=== PATIENT | male | born 1940 | race Hispanic/Latino ===

== ENCOUNTER 2020-04-06 17:45 | Emergency (ER) | payer MEDICARE ==
[~2020-04-06] VITALS: Ht 198.1 cm; Wt 81.6 kg
--- NOTE | 2020-04-06 18:38 | Emergency Department Note ---
History of Present Illnes History of Present Illness Chief Complaint: General Medicine Complaints History of Present Illness This is a 79 year old male PRESENTS WITH C/O SWELLING AND TENDERNESS TO RIGHT JAW BELOW RIGHT EAR SINCE SUNDAY PT DENIES DENTAL PAIN. Historian: Patient, Family Member Arrival Mode: Car Onset (how long ago): day(s) (3) Location: RIGHT JAW Quality: SWELLING AND PAIN Radiation: Reports non-radiation Severity: moderate Onset quality: gradual Duration (how long): day(s) (3) Timing of current episode: constant Progression: worsening Context: Denies recent illness, Denies recent surgery Relieving factors: none Exacerbating factors: movement Associated symptoms: Reports denies other symptoms Past Medical/Family History Physician Review I have reviewed the patient's past medical and family history. Any updates have been documented here. Past Medical History Recent Fever: No Clinical Suspicion of Infectio: Yes New/Unexplained Change in Ment: No Past Medical History: None Past Surgical History: None Social History Smoking Cessation: Unknown if ever smoked Counseling Performed: No Alcohol Use: None Any Illegal Drug Use: No Physically hurt or threatened: No Family History Family history of heart diseas: No Other Any Pre-Existing Lines (PICC,: No Review of Systems Review of Systems Constitutional: Reports no symptoms EENTM: Reports as per HPI Cardiovascular: Reports no symptoms Respiratory: Reports no symptoms Gastrointestinal: Reports no symptoms Genitourinary: Reports no symptoms Musculoskeletal: Reports no symptoms Integumentary: Reports no symptoms Neurological: Reports no symptoms Psychological: Reports no symptoms Endocrine: Reports no symptoms Hematological/Lymphatic: Reports as per HPI Physical Exam Related Data Allergies: Coded Allergies: No Known Allergies (Unverified , 04/06/20) Triage Vital Signs Vital Signs Date Time Temp Pulse Resp B/P (MAP) Pulse Ox O2 Delivery O2 Flow Rate FiO2 04/06/20 18:00 99.6 88 16 114/78 98 Room Air Vital signs reviewed: Yes Physical Exam CONSTITUTIONAL Constitutional: Present well-developed, Present well-nourished; Absent distressed HENT HENT: Present normocephalic, Present atraumatic, Present oropharynx clear/moist, Present nose normal, Present dental caries (DIFFUSE, RIGHT LOWER REAR MOLAR BLACK WITH SURROUNDING SWELLING), Present other (TENDER SWOLLEN AREA RIGHT JAW TMJ AREA BELOW RIGHT EAR, 3X4 CM IN SIZE) HENT L/R: Present left ext ear normal, Present right ext ear normal EYES Eyes: Reports PERRL, Reports conjunctivae normal NECK Neck: Present ROM normal PULMONARY Pulmonary: Present effort normal, Present breath sounds normal CARDIOVASCULAR Cardiovascular: Present regular rhythm, Present heart sounds normal, Present capillary refill normal, Present normal rate GASTROINTESTINAL Abdominal: Present soft, Present nontender, Present bowel sounds normal GENITOURINARY Genitourinary: Present exam deferred SKIN Skin: Present warm, Present dry MUSCULOSKELETAL Musculoskeletal: Present ROM normal NEUROLOGICAL Neurological: Present alert, Present oriented x 3, Present no gross motor or sensory deficits PSYCHOLOGICAL Psychological: Present mood/affect normal, Present judgement normal Results Laboratory Laboratory Laboratory Tests Test 04/06/20 18:00 White Blood Count 9.15 x10e3/uL (4.8-10.8) Red Blood Count 3.86 x10e6/uL (4.3-5.7) Hemoglobin 12.3 g/dL (14.0-18.0) Hematocrit 36.7 % (38.2-49.6) Mean Corpuscular Volume 95.1 fL (81-99) Mean Corpuscular Hemoglobin 31.9 pg (28-32) Mean Corpuscular Hemoglobin Concent 33.5 g/dL (31-35) Red Cell Distribution Width 12.6 % (11.7-14.4) Platelet Count 210 x10e3/uL (140-360) Neutrophils (%) (Auto) 72.5 % (38.7-80.0) Lymphocytes (%) (Auto) 16.0 % (18.0-39.1) Monocytes (%) (Auto) 8.9 % (4.4-11.3) Eosinophils (%) (Auto) 1.9 % (0.0-6.0) Basophils (%) (Auto) 0.4 % (0.0-1.0) Neutrophils # (Auto) 6.6 (2.1-6.9) Lymphocytes # (Auto) 1.5 (1.0-3.2) Monocytes # (Auto) 0.8 (0.2-0.8) Eosinophils # (Auto) 0.2 (0.0-0.4) Basophils # (Auto) 0.0 (0.0-0.1) Absolute Immature Granulocyte (auto 0.03 x10e3/uL (0-0.1) Sodium Level 137 mmol/L (136-145) Potassium Level 3.8 mmol/L (3.5-5.1) Chloride Level 103 mmol/L (98-107) Carbon Dioxide Level 23 mmol/L (22-29) Anion Gap 14.8 mmol/L (8-16) Blood Urea Nitrogen 14 mg/dL (7-26) Creatinine 0.78 mg/dL (0.72-1.25) Estimat Glomerular Filtration Rate > 60 ML/MIN (60-) BUN/Creatinine Ratio 18 (6-25) Glucose Level 177 mg/dL (74-118) Calcium Level 9.2 mg/dL (8.4-10.2) Total Bilirubin 0.8 mg/dL (0.2-1.2) Aspartate Amino Transf (AST/SGOT) 22 IU/L (5-34) Alanine Aminotransferase (ALT/SGPT) 14 IU/L (0-55) Alkaline Phosphatase 107 IU/L (40-150) Total Protein 7.2 g/dL (6.5-8.1) Albumin 3.6 g/dL (3.5-5.0) Globulin 3.6 g/dL (2.3-3.5) Albumin/Globulin Ratio 1.0 (0.8-2.0) Amylase Level 61 U/L (25-125) Lab results reviewed: Yes Imaging Imaging results reviewed: Yes Impressions History:Right facial swelling. Comparison studies: None Technique: Axial images were obtained through the facial region. Coronal and sagittal images reconstructed from the axial data. Dose modulation, iterative reconstruction, and/or weight based adjustment of the mA/kV was utilized to reduce the radiation dose to as low as reasonably achievable. Intravenous contrast: 100 cc of Isovue 370. Findings: Soft tissues: Heterogeneously enhancing and markedly enlarged right parotid gland, predominantly involving the superficial lobe. Focal hypodensity with peripheral rim enhancement that approximately measures 1.2 x 1 x 1.1 cm near the right parotid tail with associated dystrophic calcification in its anterior aspect. This may either represent a necrotic mass or lymph node. Anterior displacement of right submandibular gland due to mass effect. No significant overlying skin thickening or subcutaneous soft tissue inflammatory changes. Bones: Chronic fracture deformity of left zygomatic arch. 6 mm of well-circumscribed sclerotic lesion in left mandibular body possibly represents a bone island. Orbits: Globes: Intact. Extra or intraconal abnormalities: None. Paranasal sinuses: Mild mucosal thickening in left maxillary sinus and left ethmoid sinus. Incidental finding: Cervical spine: C2-C3: Moderate left foraminal stenosis due to facet and uncovertebral arthrosis. C3-C4: 2 mm grade 1 retrolisthesis. Posterior disc osteophyte complex results in mild canal stenosis. Moderate right and mild left foraminal stenosis due to uncovertebral arthrosis. Multiple missing teeth with osseous resorption around the remaining teeth. Dental caries in right maxillary molar, right maxillary first premolar. Periapical lucency centered about right mandibular central incisor, the activity of which is to be determined clinically. Mild degenerative changes in bilateral temporomandibular joint. IMPRESSION: Markedly enlarged, heterogeneously enhancing right parotid gland with a focal 1.2 cm peripheral rim-enhancing hypodensity and associated dystrophic calcifications. The differential consideration includes parotid neoplasm with a necrotic focus or intraparotid necrotic lymph node vs indolent infection/inflammatory process in appropriate clinical setting. Signed by: Dr. Veronica Yates M.D. on 04/06/2020 9:32 PM Dictated By: VERONICA YATES MD 31 Transcribed By: GWYN on 04/06/202131 COPY TO: DANA MEJIA MD~ Assessment & Plan Medical Decision Making MDM PT WITH SWELLING AND PAIN TO RIGHT JAW BELOW RIGHT EAR CBC, BMP, CT FACE WITH CONTRAST TO EVAL FOR LEUKOCYTOSIS, ABSCESS, DENTAL ABSCESS, MASS, I SPOKE WITH DR GARCIA (ENT) HE STATES TO HAVE PT CALL OFFICE IN AM TO BE SEEN IN CLINIC. PT DISCHARGED WITH PRESCRIPTION FOR AUGMENTIN 875 ONE PO BID FOR 14 DAYS #28, ZOFRN ODT 4 MG 1 SL Q 6 HOURS PRN NAUSEA #30 Assessment & Plan Final Impression: (1) Parotitis (2) Dental caries Depart Disposition: HOME, SELF-CARE Last Vital Signs Date Time Temp Pulse Resp B/P (MAP) Pulse Ox O2 Delivery O2 Flow Rate FiO2 04/06/20 18:00 99.6 88 16 114/78 98 Room Air DANA MEJIA MD Apr 06, 2020 18:38
[2020-04-06 18:39] LABS: BASOPHILS % 0.4 % (0.0-1.0); EOSINOPHILS # (AUTO) 0.2 (0.0-0.4); EOSINOPHILS % 1.9 % (0.0-6.0); HEMATOCRIT 36.7 % (38.2-49.6); HEMOGLOBIN 12.3 g/dL (14.0-18.0); LYMPHOCYTES # (AUTO) 1.5 (1.0-3.2); MEAN CORPUSCULAR HEMOGLOBIN 31.9 pg (28-32); MEAN CORPUSCULAR HGB CONC 33.5 g/dL (31-35); MEAN CORPUSCULAR VOLUME 95.1 fL (81-99); MONOCYTES # (AUTO) 0.8 (0.2-0.8); MONOCYTES % 8.9 % (4.4-11.3); NEUTROPHILS # (AUTO) 6.6 (2.1-6.9); NEUTROPHILS % 72.5 % (38.7-80.0); PLATELET COUNT 210 x10e3/uL (140-360); RED BLOOD COUNT 3.86 x10e6/uL (4.3-5.7); RED CELL DISTRIBUTION WIDTH 12.6 % (11.7-14.4)
[2020-04-06 18:58] LABS: ALANINE AMINOTRANSFERASE 14 IU/L (0-55); ALBUMIN 3.6 g/dL (3.5-5.0); ALKALINE PHOSPHATASE 107 IU/L (40-150); ANION GAP 14.8 mmol/L (8-16); BLOOD UREA NITROGEN 14 mg/dL (7-26); BUN/CREATININE RATIO 18 (6-25); CALCIUM 9.2 mg/dL (8.4-10.2); CARBON DIOXIDE 23 mmol/L (22-29); CHLORIDE 103 mmol/L (98-107); CREATININE, SERUM 0.78 mg/dL (0.72-1.25); EST GLOMERULAR FILTRATION RATE > 60 ML/MIN (60-); GLUCOSE 177 mg/dL (74-118); POTASSIUM 3.8 mmol/L (3.5-5.1); SODIUM 137 mmol/L (136-145)
[2020-04-06] MEDS ORDERED: SODIUM CHLORIDE 0.9% 50ML 50 ML ONE (19:40)
[2020-04-06] MEDS ORDERED: IOPAMIDOL 370 MG/ML 200 ML INFUS..BTL INJ ONE (19:40)
[2020-04-06] MEDS ORDERED: ACETAMINOPHEN 325 MG TAB PO ONE (21:30)
--- NOTE | 2020-04-06 21:35 | Diagnostic Imaging Report ---
History:Right facial swelling. Comparison studies: None Technique: Axial images were obtained through the facial region. Coronal and sagittal images reconstructed from the axial data. Dose modulation, iterative reconstruction, and/or weight based adjustment of the mA/kV was utilized to reduce the radiation dose to as low as reasonably achievable. Intravenous contrast: 100 cc of Isovue 370. Findings: Soft tissues: Heterogeneously enhancing and markedly enlarged right parotid gland, predominantly involving the superficial lobe. Focal hypodensity with peripheral rim enhancement that approximately measures 1.2 x 1 x 1.1 cm near the right parotid tail with associated dystrophic calcification in its anterior aspect. This may either represent a necrotic mass or lymph node. Anterior displacement of right submandibular gland due to mass effect. No significant overlying skin thickening or subcutaneous soft tissue inflammatory changes. Bones: Chronic fracture deformity of left zygomatic arch. 6 mm of well-circumscribed sclerotic lesion in left mandibular body possibly represents a bone island. Orbits: Globes: Intact. Extra or intraconal abnormalities: None. Paranasal sinuses: Mild mucosal thickening in left maxillary sinus and left ethmoid sinus. Incidental finding: Cervical spine: C2-C3: Moderate left foraminal stenosis due to facet and uncovertebral arthrosis. C3-C4: 2 mm grade 1 retrolisthesis. Posterior disc osteophyte complex results in mild canal stenosis. Moderate right and mild left foraminal stenosis due to uncovertebral arthrosis. Multiple missing teeth with osseous resorption around the remaining teeth. Dental caries in right maxillary molar, right maxillary first premolar. Periapical lucency centered about right mandibular central incisor, the activity of which is to be determined clinically. Mild degenerative changes in bilateral temporomandibular joint. IMPRESSION: Markedly enlarged, heterogeneously enhancing right parotid gland with a focal 1.2 cm peripheral rim-enhancing hypodensity and associated dystrophic calcifications. The differential consideration includes parotid neoplasm with a necrotic focus or intraparotid necrotic lymph node vs indolent infection/inflammatory process in appropriate clinical setting. Signed by: Dr. Veronica Silva M.D. on 04/06/2020 9:32 PM
[2020-04-06 21:44] VITALS: BP 133/82
== END 2020-04-06 21:59 | disposition home or self-care (01) ==
LOC: ER 18:06
DX: K11.20 Sialoadenitis, unspecified (principal); K02.9 Dental caries, unspecified
CPT/HCPCS: 36415; 70487; 80053; 82150; 85025; 99284; Q9967